=== PATIENT | male | born 1995 | race Caucasian/White ===

== ENCOUNTER 2017-06-09 10:14 | Emergency (ER) | payer BC, OTHER ==
[2017-06-09 10:24] VITALS: BP 125/75
--- NOTE | 2017-06-09 11:58 | EDM.PDOC ---
ED HPI GENERAL MEDICAL PROBLEM - General Chief Complaint: General Stated Complaint: COLD SYMPTOMS Time Seen by Provider: 06/09/17 11:14 Source of Information: Reports: Patient History Limitations: Reports: No Limitations - History of Present Illness INITIAL COMMENTS - FREE TEXT/NARRATIVE: Patient is a 21-year-old male who presents ED complaining of sinus congestion, runny nose, mild sore throat, and intermittent cough. States symptoms started 3 days ago and have gradually increased. There's been no documented fever. States his girlfriend was sick with similar symptoms that took about 2 weeks to resolve. She didn't require any additional meds. Sounds as if it was viral. Patient been eating and drinking well. No issues with sleeping. Still working at this point with no limitations. He has not developed a rash, nor does he complain of any chest pain, sob, abdominal pain, dysuria, stiff neck, headache, body aches, or difficulty swallowing. He has no additional past medical history currently taking no meds. Surgical history none smoking history none. Alcohol use none. Rec drugs none. He has not been on antibiotics recently. He has no primary care provider. Generalized Pain Score (Numeric/FACES): 3 - Related Data Allergies Allergy/AdvReac Type Severity Reaction Status Date / Time No Known Allergies Allergy Verified 06/09/17 10:24 Home Meds: Home Meds . [No Known Home Meds] 02/26/14 [History] Past Medical History - Past Health History Medical/Surgical History: Denies Medical/Surgical History Social & Family History - Tobacco Use Smoking Status *Q: Former Smoker Used Tobacco, but Quit: Yes Month/Year Tobacco Last Used: 4 years ago - Caffeine Use Caffeine Use: Reports: None - Alcohol Use Days Per Week of Alcohol Use: 0 - Recreational Drug Use Recreational Drug Use: No ED ROS GENERAL - Review of Systems Review Of Systems: ROS reveals no pertinent complaints other than HPI. ED EXAM, GENERAL - Physical Exam Exam: See Below Exam Limited By: No Limitations General Appearance: Alert, WD/WN, No Apparent Distress Eye Exam: Bilateral Eye: Normal Inspection, PERRL Ears: Hearing Grossly Normal Nose: Normal Inspection Throat/Mouth: Normal Voice, No Airway Compromise Head: Atraumatic, Normocephalic Neck: Normal Inspection, Supple, Non-Tender, Full Range of Motion Respiratory/Chest: No Respiratory Distress, Lungs Clear, Normal Breath Sounds, No Accessory Muscle Use, Chest Non-Tender Cardiovascular: Normal Peripheral Pulses, Regular Rate, Rhythm Peripheral Pulses: 4+: Radial (L), Radial (R) GI/Abdominal: Normal Bowel Sounds, Soft, Non-Tender, No Organomegaly, No Distention Back Exam: Normal Inspection Extremities: Normal Inspection, Normal Range of Motion, Non-Tender Neurological: Alert, Oriented, CN II-XII Intact, Normal Cognition, No Motor/ Sensory Deficits Psychiatric: Normal Affect, Normal Mood Skin Exam: Warm, Dry, Intact, Normal Color, No Rash Course - Vital Signs Last Recorded V/S: Last Vital Signs Temp 99.6 F 06/09/17 10:21 Pulse 102 H 06/09/17 10:21 Resp 18 06/09/17 10:21 BP 125/75 06/09/17 10:21 Pulse Ox 99 06/09/17 10:21 - Re-Assessments/Exams Free Text/Narrative Re-Assessment/Exam: Patient is a 21-year-old male with viral upper resp symptoms. He was told to come to the E.D. by his employer. He does not know why he needs to be examined here. He has been sleeping well at night. Cough is minimal. He's had no documented fever and has been eating and drinking well. All symptoms are upper respiratory thus no prescription medications required at this time. We discussed Flonase and nasal saline sprays use to which he agrees. We'll discharge patient home with instructions as documented. Departure - Departure Time of Disposition: 11:56 Disposition: Home, Self-Care 01 Condition: Good Clinical Impression: Upper respiratory infection with cough and congestion - Discharge Information Instructions: Upper Respiratory Infection, Adult, [id number] Referrals: PCP,None [Primary Care Provider] - Forms: ED Department Discharge, ED Return to Work/School Form Additional Instructions: Suspect viral upper respiratory infection. Treatment is symptomatic care including Flonase 1-2 sprays each nare twice a day. Nasal saline spray 1-2 sprays each nare as needed throughout the course today for nasals congestion. Use Afrin 1 spray twice a day for the next 3 days for congestion as well. Do not use this for any longer than 3 days. Push the fluids. Utilize Tylenol and ibuprofen in alternating fashion for any headaches or discomfort. Follow-up with PCP in the next week or so if symptoms have not completely resolved. Return to ED if you develop any new or worsening symptoms.
== END 2017-06-09 12:03 | disposition home or self-care (01) ==
LOC: JD.ED 10:14
DX: J06.9 Acute upper respiratory infection, unspecified (principal); Z87.891 Personal history of nicotine dependence
CPT/HCPCS: 99282; 99283

== ENCOUNTER 2019-03-02 19:24 | Emergency (ER) | payer BC ==
[2019-03-02 19:34] VITALS: BP 128/83; PULSE 79
--- NOTE | 2019-03-02 19:54 | EDM.PDOC ---
ED HPI GENERAL MEDICAL PROBLEM - General Chief Complaint: Abdominal Pain Stated Complaint: ABDOMINAL PAIN Time Seen by Provider: 03/02/19 19:47 Source of Information: Reports: Patient History Limitations: Reports: No Limitations - History of Present Illness INITIAL COMMENTS - FREE TEXT/NARRATIVE: Patient is unfortunate 23-year-old male who presents emergency Department today with complaint of bright red blood from rectum. Patient reports symptoms been going on for the last 3 months almost every time he has a bowel movement he passes bright red blood. Patient is not suffered any dizziness no lightheadedness no nausea no vomiting no fatigue. Reports she does have pain with bowel movements Abdominal Pain Score (Numeric/FACES): 1 - Related Data Allergies Allergy/AdvReac Type Severity Reaction Status Date / Time No Known Allergies Allergy Verified 03/02/19 19:33 Home Meds: Home Meds Hydrocortisone Acetate [Anusol-Hc] 25 mg RC TID PRN #12 supp.rect 03/02/19 [Rx] Past Medical History - Past Health History Medical/Surgical History: Denies Medical/Surgical History Social & Family History - Tobacco Use Smoking Status *Q: Former Smoker Used Tobacco, but Quit: No - Caffeine Use Caffeine Use: Reports: None - Recreational Drug Use Recreational Drug Use: No ED ROS GENERAL - Review of Systems Review Of Systems: See Below Constitutional: Denies: Fever, Chills GI/Abdominal: Reports: Hematochezia. Denies: Abdominal Pain, Hematemesis, Melena, Nausea ED EXAM, GI/ABD - Physical Exam Exam: See Below Exam Limited By: No Limitations General Appearance: Alert, WD/WN, No Apparent Distress Head: Atraumatic, Normocephalic Neck: Normal Inspection, Supple, Non-Tender, Full Range of Motion Respiratory/Chest: No Respiratory Distress, Lungs Clear, Normal Breath Sounds, No Accessory Muscle Use, Chest Non-Tender Cardiovascular: Normal Peripheral Pulses, Regular Rate, Rhythm, No Edema, No Gallop, No JVD, No Murmur, No Rub GI/Abdominal Exam: Normal Bowel Sounds, Soft, Non-Tender, No Organomegaly, No Distention, No Abnormal Bruit Rectal (Males) Exam: Bloody Stool, Hemorrhoids (Internal) Back Exam: Normal Inspection, Full Range of Motion, NT Extremities: Normal Inspection, Normal Range of Motion, Non-Tender, Normal Capillary Refill, No Pedal Edema Neurological: Alert Skin Exam: Warm, Dry Course - Vital Signs Last Recorded V/S: Last Vital Signs Temp 98.5 F 03/02/19 19:30 Pulse 79 03/02/19 19:30 Resp 18 03/02/19 19:30 BP 128/83 03/02/19 19:30 Pulse Ox 97 03/02/19 19:30 Departure - Departure Time of Disposition: 19:53 Disposition: Home, Self-Care 01 Clinical Impression: Hemorrhoids Qualifiers: Hemorrhoid type: unspecified Qualified Code(s): K64.9 - Unspecified hemorrhoids - Discharge Information Prescriptions: Hydrocortisone Acetate [Anusol-Hc] 25 mg RC TID PRN #12 supp.rect PRN Reason: Pain Instructions: Disposable Sitz Bath Referrals: PCP,None [Primary Care Provider] - Additional Instructions: Home, rest, increase fiber in your diet, return as needed for worsening condition Sepsis Event Note - Evaluation Sepsis Screening Result: No Definite Risk - Focused Exam Vital Signs: Vital Signs Temp Pulse Resp BP Pulse Ox 03/02/19 19:30 98.5 F 79 18 128/83 97 Date Exam was Performed: 03/02/19 Time Exam was Performed: 19:51
== END 2019-03-02 20:08 | disposition home or self-care (01) ==
LOC: JD.ED 19:24
DX: K64.8 Other hemorrhoids (principal); Z87.891 Personal history of nicotine dependence
CPT/HCPCS: 99282; 99283